=== PATIENT | female | born 2000 | race Hispanic/Latino ===

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

== ENCOUNTER 2022-08-03 20:43 | Emergency (ER) | payer MEDICAID ==
[~2022-08-03] VITALS: Ht 160 cm; Wt 66.7 kg
[2022-08-03 20:45] VITALS: BP 125/82
[2022-08-03] MEDS ORDERED: CYCL5TAB PO (20:55)
[2022-08-03] MEDS ORDERED: LIDO1ADH82 TP (20:55)
[2022-08-03] MEDS ORDERED: CYCLOBENZAPRINE HCL 10 MG TABLET PO ONE (21:00)
[2022-08-03] MEDS ORDERED: ACETAMINOPHEN 500 MG TABLET PO ONE (21:00)
[2022-08-03] MEDS ORDERED: LIDOCAINE 5% TOPICAL PATCH TP ONE (21:00)
== END 2022-08-03 21:16 | disposition home or self-care (01) ==
LOC: EDH 20:43
DX: S46.811A Strain of other muscles, fascia and tendons at shoulder and upper arm level, right arm, initial encounter (principal); M62.830 Muscle spasm of back; X58.XXXA Exposure to other specified factors, initial encounter; Y93.89 Activity, other specified; Y92.89 Other specified places as the place of occurrence of the external cause; Y99.8 Other external cause status

== ENCOUNTER 2024-04-13 23:15 | Emergency (ER) | payer SELFPAY ==
[~2024-04-13] VITALS: Ht 160 cm; Wt 72.6 kg
[~2024-04-13 23:15] MED LIST: CYCL5TAB3 PO; LIDO1ADH82 TP
[2024-04-13 23:17] VITALS: TEMP 98.1
[2024-04-13] MEDS: TETRACAINE HCL 0.5% 4 ML OPHTH SOLN OP STA (23:54)
[2024-04-13] MEDS: FLUORESCEIN SODIUM 1 STRIP STRIP OP ONE (23:54)
[2024-04-13] MEDS: TETRACAINE HCL 0.5% 4 ML OPHTH SOLN ONE (23:55)
[2024-04-13] MEDS: FLUORESCEIN SODIUM 1 STRIP STRIP ONE (23:56)
[2024-04-14] MEDS: acetaMINOPHEN 500 MG TABLET ONE (00:24)
[2024-04-14] MEDS: acetaMINOPHEN 500 MG TABLET PO ONE (00:24)
--- NOTE | 2024-04-14 00:36 | ERN ---
General Chief Complaint: Eye Problems Stated Complaint: HIT IN RT EYE BY A SOCCER BALL TONIGHT Time Seen by MD: 00:06 Time Seen by Midlevel: 00:06 Source: patient History of Present Illness Initial Comments 24-year-old female who presents to the emergency department due to right eye pain. Patient reports she was hit with a soccer ball tonight. Patient has been washing out her eye due to noticing turf in her eye. States she initially had blurry vision but is now improving. Denies vision loss, fevers, difficulty moving the eye, or further associated symptoms. Denies significant past medical history. Allergies: Coded Allergies: No Known Drug Allergies (Unverified Allergy, Unknown, 10/27/19) Home Meds Active Scripts Erythromycin Base (Erythromycin) 5 Mg/Gram (0.5 %) Oint...g., 1 APPL OP QID for 5 Days, #1 GM 0 Refills apply 1 cm ribbon into the lower conjunctival sac Prov:MYRON HSU 04/14/24 Cyclobenzaprine HCl (Cyclobenzaprine HCl) 5 Mg Tablet, 5 MG PO Q8H for spasm pain for 7 Days, #21 TAB Prov:JONAH CHURCHILL NP 08/03/22 Lidocaine (Lidocaine) 1 Each Adh..patch, 1 EACH TP BID for 30 Days, #1 BOX 2 Refills Prov:JONAH CHURCHILL NP 08/03/22 Past Medical History Past Medical History: No Pertinent History Past Surgical History: Appendectomy Female( History) LMP: Mar 30, 2024 ROS Dictation Constitutional: Negative for fever,chills, and weight loss Eyes: Positive for right eye pain Negative for injury, redness, and discharge ENT: Negative for injury,pain or swelling Cardiovascular: Negative for chest pain, palpitations, and edema Respiratory: Negative for shortness of breath, cough, and wheezing, Abdomen/GI: Negative for abdominal pain, nausea, vomiting, diarrhea, and constipation Back: Negative for injury and pain : Negative for painful urination, bleeding or discharge MS/Extremity: Negative for injury and deformity Skin: Negative for rash, and discoloration Neuro: Negative for headache, weakness, numbness, tingling, and seizure Psych: Negative for suicide ideation, homicidal ideation, and hallucinations Physical Exam Physical Exam Dictation General: awake, alert, no acute distress Head/Face: Normocephalic, atraumatic Eyes: PERRL, EOMI, erythematous right conjunctiva, no debris noted in the right eye, mild corneal abrasion noted to the lower aspect ENT: oral cavity clear, oral mucosa moist Neck: Supple, normal range of motion Cardiovascular: RRR, normal S1/S2 Respiratory: No respiratory distress Skin: Warm, dry, normal turgor, no rash MS/Extremity: Pulses equal, no cyanosis, neurovascular intact, FROM Neuro: COAx4, GCS 15, no neurological deficits, normal gait Psych: Normal behavior, mood, and affect normal MDM MDM: Differential diagnosis: Corneal abrasion, orbital fracture, orbital contusion Rationale: 24-year-old female who presents to the emergency department due to right eye pain. Patient reports she was hit with a soccer ball tonight. Patient has been washing out her eye due to noticing turf in her eye. States she initially had blurry vision but is now improving. Denies vision loss, fevers, difficulty moving the eye, or further associated symptoms. Denies significant past medical history. Wood's lamp exam performed in the ED with a corneal abrasion noted to the lower aspect of the right eye, no foreign objects noted. Patient's right eye was washed out using normal saline. Facial x-rays obtained with no indications of fractures or dislocations. Per physical examination patient has full EOMI right eye with mild blurred vision which is now improving. Patient was prescribed antibiotics for outpatient treatment. Educated on findings and diagnosis. Advised to follow up with event planning manager and PCP. Return to the emergency department if any worsening symptoms. Patient verbalized understanding. Patient stable for discharge. There are no social concerns with this patient. I independently interpreted the test that were performed, results were reviewed by me and considered findings on radiology if ordered. Medical management and examination interpretation discussions were had by me with other qualified healthcare professionals as indicated for the patient's care. ED Course Orders Procedure Category Date Status Time Fluorescein Sodium PHA 04/14/24 Complete (Kddzs-E-Zfxbr At) 00:00 Tetracaine Hcl PHA 04/13/24 Complete (Pontocaine 0.5% 23:49 Fluorescein Sodium PHA 04/13/24 Complete (Enfli-N-Cddtq At) 23:49 Tetracaine Hcl PHA 04/13/24 Complete (Pontocaine 0.5% 23:49 Facial Bones Comp RAD 04/14/24 Taken 3+Vws 00:04 Acetaminophen 500mg PHA 04/14/24 Complete Tab (Tylenol 500mg T 00:30 Acetaminophen 500mg PHA 04/14/24 Complete Tab (Tylenol 500mg T 00:21 Current Medications Medications (Trade) Dose Ordered Sig/Alysha Route PRN Reason Start Time Stop Time Status Last Admin Dose Admin Acetaminophen (TYLenol 500MG TAB) 500 mg STK-MED ONCE .ROUTE 04/14/24 00:21 04/14/24 00:21 DC Acetaminophen (TYLenol 500MG TAB) 1,000 mg ONCE ONCE PO 04/14/24 00:30 04/14/24 00:31 DC 04/14/24 00:24 Fluorescein Sodium (Bbbuh-V-Zaovx At) 1 strip ONCE ONCE OP 04/14/24 00:00 04/14/24 00:01 DC 04/13/24 23:54 Fluorescein Sodium (Qziph-P-Dcimj At) 1 strip STK-MED ONCE .ROUTE 04/13/24 23:49 04/13/24 23:54 DC Tetracaine HCl (Pontocaine 0.5% Ophth Soln) 2 drop ONCE STAT OP 04/13/24 23:49 04/13/24 23:52 DC 04/13/24 23:54 Tetracaine HCl (Pontocaine 0.5% Ophth Soln) 20 drop STK-MED ONCE .ROUTE 04/13/24 23:49 04/13/24 23:54 DC Vital Signs Date Time Temp Pulse Resp B/P (MAP) Pulse Ox O2 Delivery O2 Flow Rate FiO2 04/14/24 01:10 71 18 110/72 100 Room Air* 0 21 04/13/24 23:35 70 18 108/70 100 Room Air* 0 21 04/13/24 23:17 98.1 72 20 106/72 100 Room Air DX & DISP Disposition: Discharge Departure Impression: Primary Impression: Corneal abrasion Additional Impression: Orbital contusion Condition: Stable Scripts Erythromycin Base (Erythromycin) 5 Mg/Gram (0.5 %) Oint...g. 1 APPL OP QID for 5 Days, #1 GM 0 Refills apply 1 cm ribbon into the lower conjunctival sac Prov: MYRON HSU 04/14/24 Additional Instructions: Discharge home. Rest. Follow up with primary care Dr. in 24 hours. Return to the ER for any acute changes or worsening symptoms. If any medications were prescribed take as directed. Okay to continue home medications unless otherwise discussed during your visit in the emergency room today. Patient was also advised to follow-up with primary care physician in 1 to 2 days for continued monitoring. Referrals: MARTY BATRES MD (PCP) I performed the substantive portion of the visit. I have reviewed and personally made and approve the management plan that is documented in the notes by myself or the MAIA. I acknowledge full responsibility for the patient's management plan. MYRON HSU Apr 14, 2024 00:36
[2024-04-14 01:10] VITALS: BP 110/72; PULSE 71; RESP 18; O2SAT 100
[2024-04-14] MEDS ORDERED: ERYT1OIN7 OP (01:10)
--- NOTE | 2024-04-14 02:00 | HMCIMG ---
FACIAL BONES COMP 3+VWS REASON: Hit to the right eye. COMPARISON: None TECHNIQUE: 3 images of facial bones were obtained. FINDINGS: Dental braces are seen. There is no acute displaced fracture. IMPRESSION: Findings as described above.
== END 2024-04-14 02:00 | disposition home or self-care (01) ==
LOC: EDH 23:15
DX: S05.01XA Injury of conjunctiva and corneal abrasion without foreign body, right eye, initial encounter (principal); S05.11XA Contusion of eyeball and orbital tissues, right eye, initial encounter; Z90.49 Acquired absence of other specified parts of digestive tract; W21.02XA Struck by soccer ball, initial encounter; Y93.89 Activity, other specified; Y92.89 Other specified places as the place of occurrence of the external cause; Y99.8 Other external cause status
CPT/HCPCS: 70150; 99283